=== PATIENT | male | born 1950 | race Two or more races ===

== ENCOUNTER 2021-02-25 11:01 | Day surgery (SDC) | payer MEDICARE, MEDICAID ==
[~2021-02-25] VITALS: Ht 167.6 cm; Wt 147.7 kg
[~2021-02-25 11:01] MED LIST: ASPI-1265 PO; LISI10TA27 PO; METF500T PO
[2021-02-25 11:20] VITALS: BP 140/83
[2021-02-25] MEDS ORDERED: fentaNYL/PF 50MCG/1 ML 2ML syringe ONE (12:03)
[2021-02-25] MEDS ORDERED: MIDAZolam 1 MG/ML 5ML VIAL ONE (12:04)
[2021-02-25 12:42] VITALS: BP 131/66
[2021-02-25 12:52] VITALS: BP 127/77
[2021-02-25 13:02] VITALS: BP 125/69
== END 2021-02-25 13:30 | disposition home or self-care (01) ==
LOC: GI LAB 11:01
PROVIDERS: ATTEND Internal Medicine Gastroenterology
DX: Z12.11 Encounter for screening for malignant neoplasm of colon (principal); D12.5 Benign neoplasm of sigmoid colon; D12.2 Benign neoplasm of ascending colon; K64.8 Other hemorrhoids; E66.01 Morbid (severe) obesity due to excess calories; Z68.43 Body mass index [BMI] 50.0-59.9, adult; G47.30 Sleep apnea, unspecified; E11.9 Type 2 diabetes mellitus without complications; Z88.8 Allergy status to other drugs, medicaments and biological substances; Z86.010 Personal history of colon polyps; Z79.899 Other long term (current) drug therapy; Z79.84 Long term (current) use of oral hypoglycemic drugs
CPT/HCPCS: 45380; 45385; 99153; C1773; G0500; J2250; J3010; J7040; 99152; A4620

== ENCOUNTER 2024-06-26 10:36 | Day surgery (SDC) | payer BC, MEDICAID ==
[~2024-06-26] VITALS: Ht 170.2 cm; Wt 134.1 kg
[2024-06-26] MEDS ORDERED: VENL150C58 PO (11:28)
[2024-06-26] MEDS ORDERED: ATOR40TA72 PO (11:28)
[2024-06-26] MEDS ORDERED: DULA3PEN (11:28)
[2024-06-26] MEDS ORDERED: SITA100T15 PO (11:28)
[2024-06-26 11:31] VITALS: BP 129/93; PULSE 79; RESP 13
[2024-06-26] MEDS ORDERED: midazolam 1 mg/ML 2ml injection ONE (12:01)
[2024-06-26] MEDS ORDERED: fentaNYL/PF 50MCG/1 ML 2ML syringe ONE (12:01)
[2024-06-26] MEDS ORDERED: propofol inj 20 ML IV ONE (12:16)
[2024-06-26 12:24] VITALS: BP 134/95; PULSE 64; RESP 14; O2SAT 95
[2024-06-26 12:33] VITALS: BP 130/74; PULSE 65; RESP 18; O2SAT 92
[2024-06-26 12:43] VITALS: BP 132/77; PULSE 62; RESP 13; O2SAT 98
[2024-06-26 12:53] VITALS: BP 123/79; PULSE 65; RESP 18; O2SAT 95
== END 2024-06-26 13:18 | disposition home or self-care (01) ==
LOC: GI LAB 10:36
PROVIDERS: ATTEND Internal Medicine Gastroenterology
DX: Z12.11 Encounter for screening for malignant neoplasm of colon (principal); K57.30 Diverticulosis of large intestine without perforation or abscess without bleeding; K64.8 Other hemorrhoids; I10 Essential (primary) hypertension; E11.9 Type 2 diabetes mellitus without complications; E66.01 Morbid (severe) obesity due to excess calories; G47.33 Obstructive sleep apnea (adult) (pediatric); Z86.0100 Personal history of colon polyps, unspecified; Z68.42 Body mass index [BMI] 45.0-49.9, adult; Z88.8 Allergy status to other drugs, medicaments and biological substances
CPT/HCPCS: 45378; J2250; J2704; J3010; J7030; Z7512; 43235; A4620